=== PATIENT | female | born 2000 | race Caucasian/White ===

== ENCOUNTER 2019-12-01 00:53 | Outpatient (CLI) | payer MEDICAID ==
[2019-12-01 01:18] LABS: APPEARANCE,URINE CLEAR; BILIRUBIN,URINE NEGATIVE (NEGATIVE); COLOR,URINE STRAW; GLUCOSE, URINE NEGATIVE (NEGATIVE); KETONES,URINE NEGATIVE (NEGATIVE); LEUKOCYTE ESTERASE,URINE NEGATIVE (NEGATIVE); NITRITE,URINE NEGATIVE (NEGATIVE); PROTEIN,URINE NEGATIVE (NEGATIVE); URINE SPECIFIC GRAVITY 1.005; UROBILINOGEN,URINE NEGATIVE mg/dL (<2.0)
[2019-12-01 01:37] LABS: URINE AMPHETAMINES SCREEN NEGATIVE; URINE BARBITURATES SCREEN NEGATIVE; URINE BENZODIAZEPINES SCREEN NEGATIVE; URINE COCAINE SCREEN NEGATIVE; URINE MARIJUANA (THC) SCREEN NEGATIVE; URINE METHADONE SCREEN NEGATIVE; URINE PHENCYCLIDINE SCREEN NEGATIVE
[2019-12-01] MEDS ORDERED: HYDROXYZINE PAMOATE 50 MG CAPSULE ONE (03:24)
[2019-12-01] MEDS ORDERED: HYDROXYZINE PAMOATE 50 MG CAPSULE PO ONE (03:25)
== END 2019-12-01 03:32 | disposition home or self-care (01) ==
LOC: LC 00:53
PROVIDERS: ATTEND Obstetrics & Gynecology
DX: O47.1 False labor at or after 37 completed weeks of gestation (principal); Z3A.39 39 weeks gestation of pregnancy
CPT/HCPCS: 81005; 80307; 59025; J3490

== ENCOUNTER 2019-12-04 13:06 | Inpatient (IN) | payer MEDICAID ==
--- NOTE | 2019-12-04 13:13 | Non Stress Test Report ---
Non Stress Test Datetime Report Generated by CPN: 12/04/2019 13:12 DEMOGRAPHIC Test Number: 1 EGA NST: 39.2 INDICATION Indication for Study (NST) Other: lc URINE RESULTS Urine Protein, NST: Negative Urine Ketones - NST: Negative Urine Glucose - NST: Negative Urine Blood - NST: Negative MONITORING Monitor Explained: Monitor Explained; Test Explained; Patient Verbalized Understanding Time on Monitor: 12/01/2019 01:12 Time off Monitor: 12/01/2019 01:52 NST Duration: 40 NST INTERVENTIONS NST Interventions: None Physician Notified NST: Dr. Wilner BABY A: [id number] BABY A Movement : Present Contraction Frequency : 2-8 FHR Baseline : 125 Accelerations : 15X15 Decelerations : None Variability : Moderate 6-25bpm NST Review: Meets Criteria for Reactive NST NST Review and Verified By : Nicholas De Jesus RN NST Results: Reactive NST REPORT Report Trigger: Send Report
[2019-12-04 14:09] LABS: APPEARANCE,URINE SLIGHTLY-CLOUDY; BILIRUBIN,URINE NEGATIVE (NEGATIVE); COLOR,URINE YELLOW; GLUCOSE, URINE NEGATIVE (NEGATIVE); KETONES,URINE NEGATIVE (NEGATIVE); LEUKOCYTE ESTERASE,URINE NEGATIVE (NEGATIVE); NITRITE,URINE NEGATIVE (NEGATIVE); PROTEIN,URINE NEGATIVE (NEGATIVE); URINE SPECIFIC GRAVITY 1.008; UROBILINOGEN,URINE NEGATIVE mg/dL (<2.0)
[2019-12-04 14:39] LABS: URINE AMPHETAMINES SCREEN NEGATIVE; URINE BARBITURATES SCREEN NEGATIVE; URINE BENZODIAZEPINES SCREEN NEGATIVE; URINE COCAINE SCREEN NEGATIVE; URINE MARIJUANA (THC) SCREEN NEGATIVE; URINE METHADONE SCREEN NEGATIVE; URINE PHENCYCLIDINE SCREEN NEGATIVE
--- NOTE | 2019-12-04 15:25 | Admission Physical ---
Datetime Report Generated by CPN: 12/04/2019 15:25 CURRENT ADMISSION Hx Assessment: The History has been Reviewed and is Current Chief Complaint: Uterine Contractions; Suspected Ruptured Membranes Indication for Induction: Not Applicable Admit Impression : Term, Intrauterine Admit Plan: Admit to Unit; Initiate Labor Protocol ALLERGIES Medication Allergies: No Medication Allergies: No Known Allergies (12/01/2019) Latex: Unknown Food Allergies: denies Environmental Allergies: denies OBSTETRICAL HISTORY EDC: 12/06/2019 00:00 : 1 Para: 0 Term: 0 : 0 SAB: 0 IAB: 0 Ectopic: 0 Livin Cesareans: 0 VBACs: 0 Multiple Births: 0 Gestational Diabetes: No Rh Sensitization: No Incompetent Cervix: No CITLALLI: No Infertility: No ART Treatment: No Uterine Anomaly: No IUGR: No Hx Previous C/S: No Macrosomia: No Hx Loss/Stillborn: No PIH: No Hx : No Placenta Previa/Abruption: No Depression/PP Depression: No PTL/PROM: No Post Hemorrhage: No Current Procedures: Ultrasound; NST Obstetrical History Comments: g1-current SEE RECORDS Alcohol: No Marijuana : No Cocaine: No Other Illicit Drugs: No Cigarettes: Never Smoker. [id number] MEDICAL HISTORY Diabetes: No Blood Transfusion: No Pulmonary Disease (Asthma, TB): No Breast Disease: No Hypertension: No Pc Installation Engineer Surgery: No Heart Disease: No Hosp/Surgery: No Autoimmune Disorder: No Anesthetic Complications: No Kidney Disease: No Abnormal Pap Smear: No Neuro/Epilepsy: No Psychiatric Disorders: No Other Medical Diseases: Yes Hepatitis/Liver Disease: No Significant Family History: No Varicosities/Phlebitis: No Trauma/Violence : No Thyroid Dysfunction: No Medical History Comments: anemia, adopted by aunt INFECTIOUS HISTORY Gonorrhea: No Genital Herpes: No Chlamydia: No Tuberculosis: No Syphilis: No Hepatitis: No HIV/AIDS Exposure: No Rash or Viral Illness: No HPV: No PHYSICAL EXAM General: Normal Heart: Normal Lungs: Normal Extremities: Normal Vital Signs: Reviewed; Within Normal Limits VAGINAL EXAM Contraction Comments: 3-5 MEMBRANES Amniotic Fluid Color: Clear FETUS A EGA: 39.5 Monitoring: External US FHR Category: Category I Presentation: Vertex Admit Comment: 20yo @ 39w5d into L_D with SROM @ noon today, Pt is A neg, Rubella non-immune, GBS negative with complicated by excessive weight gain (>40lbs), elevated 1hr GTT (normal 3hr) and anemia at NOB, otherwise uncomplicated. Plan is expectant management at this time as pt is simone on her own, augment as neeed. Dr. Cortez is the OB energy control officer and aware of admission and pt status. PLANS FOR LABOR AND DELIVERY Labor and Delivery: None Pain Management: Epidural Feeding Preference: Both Benefit of Breast Feed Discussed: Yes Circumcision: Yes INFORMED CONSENT Assignment: Joanne Cortez MD Signature: with User ID: Christos : with User ID: [email or web address]
[2019-12-04] MEDS ORDERED: RINGERS SOLUTION,LACTATED 1,000 ML IV ONE (15:45)
[2019-12-04] MEDS ORDERED: RINGERS SOLUTION,LACTATED 1,000 ML IV PRN (15:45)
[2019-12-04] MEDS ORDERED: OXYTOCIN/0.9 % SODIUM CHLORIDE 30 UNIT/500 ML RTUINJ IV PRN ×2 (15:45→22:43)
[2019-12-04] MEDS ORDERED: MISOPROSTOL 0.2 MG TABLET ONE (15:46)
[2019-12-04] MEDS ORDERED: OXYTOCIN/0.9 % SODIUM CHLORIDE 30 UNIT/500 ML RTUINJ ONE (15:46)
[2019-12-04] MEDS ORDERED: LIDOCAINE 1% INJ-PF (10 MG/ML) 30 ML SDV ONE (15:46)
[2019-12-04] MEDS ORDERED: OXYTOCIN 10 UNIT/ML VIAL ONE (15:46)
[2019-12-04 16:26] LABS: ABSOLUTE BASOPHILS # (AUTO) 0.1 10^3/uL (0.0-0.2); ABSOLUTE EOSINOPHILS # (AUTO) 0.1 10^3/uL (0.0-0.6); ABSOLUTE LYMPHOCYTES (AUTO) 1.1 10^3/uL (0.5-4.7); ABSOLUTE MONOCYTES (AUTO) 0.5 10^3/uL (0.1-1.4); ABSOLUTE NEUT (AUTO) 6.9 10^3/uL (1.7-8.2); BASOPHILS % (AUTO) 0.6 % (0-2); EOSINOPHILS % (AUTO) 0.9 % (0-6); HEMATOCRIT 32.3 % (36.0-47.0); HEMOGLOBIN 11.2 g/dL (12.0-15.5); LYMPHOCYTES % (AUTO) 12.8 % (13-45); MEAN CORPUSCULAR HGB CONC 34.8 g/dL (32.0-36.0); MEAN CORPUSCULAR VOLUME 86 fl (80-97); MONOCYTES % (AUTO) 5.3 % (3-13); PLATELET COUNT 200 10^3/uL (150-450); RED BLOOD COUNT 3.74 10^6/uL (3.72-5.28); RED CELL DISTRIBUTION WIDTH 14.2 % (11.5-14.0); SEGMENTED NEUTROPHILS % (AUTO) 80.4 % (42-78); TOTAL CELLS COUNTED % (AUTO) 100 %; WHITE BLOOD COUNT 8.5 10^3/uL (4.0-10.5)
[2019-12-04] MEDS ORDERED: FENTANYL/BUPIVACAINE/NS/PF 300 MCG/150 ML RTUINJ EPI ONE (19:26)
[2019-12-04] MEDS ORDERED: EPHEDRINE SULFATE INJ 50 MG/1 ML AMPULE ONE (19:26)
[2019-12-04] MEDS ORDERED: ROPIVACAINE HCL 0.2% INJ/PF (2 MG/ML) 20 ML SDV ONE (19:27)
[2019-12-04] MEDS ORDERED: BENZOCAINE/MENTHOL AEROSOL SPRAY 56 ML TOP PRN (22:43)
[2019-12-04] MEDS ORDERED: PROMETHAZINE HCL 25 MG SUPP.RECT PR PRN (22:43)
[2019-12-04] MEDS ORDERED: ACETAMINOPHEN 650 MG SUPP.RECT PR PRN (22:43)
[2019-12-04] MEDS ORDERED: DIBUCAINE 1% OINTMENT 28 GM TP PRN (22:43)
[2019-12-04] MEDS ORDERED: PROMETHAZINE HCL 25 MG TABLET PO PRN (22:43)
[2019-12-04] MEDS ORDERED: NA PHOS,M-B/NA PHOS,DI-BA (ADULT) 133 ML ENEMA PR PRN (22:43)
[2019-12-04] MEDS ORDERED: PSEUDOEPHEDRINE HCL 30 MG TABLET PO PRN (22:43)
[2019-12-04] MEDS ORDERED: GLYCERIN/WITCH HAZEL LEAF 1 EACH MED..WIPE TP PRN (22:43)
[2019-12-04] MEDS ORDERED: DIPHENHYDRAMINE HCL 25 MG CAPSULE PO PRN (22:43)
[2019-12-04] MEDS ORDERED: MEASLES,MUMPS&RUBELLA VACC/PF 0.5 ML VIAL SUBCUT PRN (22:43)
[2019-12-04] MEDS ORDERED: ACETAMINOPHEN WITH CODEINE #3 TABLET PO PRN ×2 (22:43)
[2019-12-04] MEDS ORDERED: MAGNESIUM HYDROXIDE SUSP 30 ML UDCUP PO PRN (22:43)
[2019-12-04] MEDS ORDERED: ACETAMINOPHEN 325 MG TABLET PO PRN (22:43)
[2019-12-04] MEDS ORDERED: DIPH/PERTUSS(ACELL)/TETANUS VAC/PF 0.5 ML SYR (>=10YO) IM PRN (22:43)
[2019-12-04] MEDS ORDERED: PROMETHAZINE HCL INJ 25 MG/1 ML VIAL IV PRN (22:43)
[2019-12-04] MEDS ORDERED: ZOLPIDEM TARTRATE 5 MG TABLET PO PRN (22:43)
[2019-12-04] MEDS ORDERED: ACETAMINOPHEN 325 MG TABLET ONE (23:38)
--- NOTE | 2019-12-05 00:10 | Birth Certificate Data ---
Cert Data Datetime Report Generated by CPN: 12/05/2019 00:10 CERTIFICATE DATA 47a. Care: Yes (12/01/2019 01:04:Leatha Gan RN) 47b. Date of First Visit: 05/24/2019 00:00 (12/01/2019 01:04:Dione Morgan RN) 47c. Date of Last Visit: 11/27/2019 00:00 (12/01/2019 01:04:Dione Morgan RN) 47d. Number of Visits: 10 (12/01/2019 01:04:Dione Morgan RN) 48a. Number of Prev Live Births: 0 (12/01/2019 01:04:Dione Morgan RN) 48b. Now Livin (12/01/2019 01:04:Leatha Gan RN) 48c. Live Births Now : 0 (12/01/2019 01:04: system process) 48e. Losses: 0 (12/01/2019 01:04:Dione Morgan RN) RISK FACTORS IN THIS 49a. Diabetes: No (12/01/2019 01:04:Leatha Gan RN) 49b. Hypertension: No (12/01/2019 01:04:Leatha Gan RN) 49c. Previous Births: 0 (12/01/2019 01:04:Leatha Gan RN) 49d. Stillborns: No (12/01/2019 01:04:Leatha Gan RN) 49d. IUGR: No (12/01/2019 01:04:Leatha Gan RN) 49e. Infertility Treatment: No (12/01/2019 01:04:Leatha Gan RN) 49f. Previous Cesareans: 0 (12/01/2019 01:04:Dione Morgan RN) Mother's Height 50b. Height Inches: 65 (12/01/2019 01:07:QS system process) Mother's Weight 51a. Pre- Weight (lbs): 121 (12/01/2019 01:04:Leatha Gan RN) 51b. Weight at Delivery (lbs): 172 (12/01/2019 01:07:QS system process) 52. Dt Last Normal Menses Began: 03/01/2019 00:00 (12/01/2019 01:04:May MELODY Morgan) Infections Present/Treated 53a. Gonorrhea: No (12/01/2019 01:04:Leatha Gan RN) Results this Hospital Visit : Negative (12/01/2019 01:04:Leatha Gan RN) 53b. Syphilis: No (12/01/2019 01:04:Leatha Gan RN) 53c. Chlamydia: No (12/01/2019 01:04:Leatha Gan RN) Results this Hospital Visit: Negative (12/01/2019 01:04:Leatha Gan RN) 53d. Hepatitis B: No (12/01/2019 01:04:Leatha Gan RN) Results this Hospital Visit: Negative (12/01/2019 01:04:Leatha Gan RN) 53e. Hepatitis C: Negative (12/01/2019 01:04:Leatha Gan RN) 53h. Mother Tested for HBsAG: Yes (12/01/2019 01:04:Nahomy Vinson RN) 53i. Date Tested: 05/24/2019 00:00 (12/01/2019 01:04:Nahomy Vinson RN) 53j. Test Result: Negative (12/01/2019 01:04:Leatha Gan RN) Obstetric Procedures 54a, b, c. Obstetric Procedures: Ultrasound; NST (12/01/2019 01:04:Leatha Gan RN) Cigarette Smoking Cigarette Smoking: Never Smoker. [id number] (12/01/2019 01:04:Leatha Gan RN) 55a. 3 Months Before Preg - Ci (12/01/2019 01:04:Leatha Gan RN) 55b. 1st Trimester of Preg- Ci (12/01/2019 01:04:Leatha Gan RN) 55c. 2nd Trimester of Preg- Ci (12/01/2019 01:04:Leatha Gan RN) 55d. 3rd Trimester of Preg- Ci (12/01/2019 01:04:Leatha Gan RN) Onset of Labor 56a. PROM >12 Hrs: 10.40 (12/04/2019 13:28:QS system process) 56b. Precipitous Labor <3 Hrs: 10 (12/01/2019 01:04:QS system process) 56c. Prolonged Labor > 20 Hrs: 10 (12/01/2019 01:04:QS system process) 57a. Induction of Labor: Augmentation (12/01/2019 01:04:Nahomy Vinson RN) 57c. Non-Vertex Presentation A: Vertex (12/01/2019 01:04:Heather Watkins RN) 57d. Steroids - Lung Mat: None (12/01/2019 01:04:Nahomy Vinson RN) 57d. Steroids - Lung Mat: Not Applicable (12/01/2019 01:04:Nahomy Vinson RN) 57f. Mat [place] or Temp >100.4: 98.2 (12/01/2019 01:04:Nahomy Vinson RN) 57g. Moderate/Heavy Meconium: Clear (12/04/2019 13:28:Dione Morgan RN) 57h. Intolerance of Labor: N/A (12/01/2019 01:04:Heather Watkins RN) 57i. Epidural/Spinal Anesthesia: Intrathecal (12/01/2019 01:04:Joanne Cortez MD) Method of Delivery 58a. Forceps - Unsuccessful A: N/A (12/01/2019 01:04:Heather Watkins RN) 58b. Vacuum - Unsuccessful A: N/A (12/01/2019 01:04:Heather Watkins RN) 58c. Presentation at 58c. Presentation at - A : Vertex (12/01/2019 01:04:Heather Watkins RN) 58c. Presentation at - A : N/A (12/01/2019 01:04:Heather Watkins RN) 58c. Presentation at - A : Cephalic (12/01/2019 01:04:Heather Watkins RN) Final Route and Method of Del 58d. Baby A Route/Delivery: Vaginal (12/01/2019 01:04:Heather Watkins RN) 58e. Trial of Labor Attempted: No (12/01/2019 01:04:Nahomy Vinson RN) 58e. Trial of Labor Attempted A: N/A (12/01/2019 01:04:Nahomy Vinson RN) 58e. Trial of Labor Attempted B: N/A (12/01/2019 01:04:Nahomy Vinson RN) Maternal Morbidity 59b. 3rd or 4th Degree Lacs: Perineal (12/01/2019 01:04:Heather Watkins RN) 59b. 3rd or 4th Degree Lacs: Second Degree (12/01/2019 01:04:aNhomy Vinson RN) 59b. 3rd or 4th Degree Lacs: Lt labial 1st degree (12/01/2019 01:04:Heather Watkins RN) Birthweight Baby A: 3540 (12/01/2019 01:04:Nahomy Vinson RN) 60a. Pounds : 7 (12/01/2019 01:04:QS system process) 60b. Ounces: 13 (12/01/2019 01:04:QS system process) 61. GA at Delivery Baby A: 39.5 (12/01/2019 01:04:Heather Watkins RN) : Full Term- 39- 40.6 Weeks (12/01/2019 01:04:QS system process) 62a. 5 Minute Baby A: 9 (12/01/2019 01:04:QS system process)
--- NOTE | 2019-12-05 00:10 | Warning Signs in Babies ---
VOD Warning Signs Datetime Report Generated by [facility]: 12/05/2019 00:10 VOD#608 -Warning Signs in Babies: Needs to be viewed. (12/01/2019 01:04:Nahomy Vinson RN)
--- NOTE | 2019-12-05 00:10 | Delivery Summary ---
Del Sum A-C Datetime Report Generated by CPN: 12/05/2019 00:10 DELIVERY PERSONNEL DELIVERY PERSONNEL: [id number] Delivery Doctor:: Joanne Cortez MD Labor and Delivery Nurse:: Nahomy Vinson RN Labor and Delivery Nurse:: Heather Watkins RN Home Visit Field Care Manager/CHEMIST BIOLOGICAL: Abilio Sauceda, METALLURGICAL ENGINEERING TEACHER MATERNAL INFORMATION Delivery Anesthesia: Epidural Medications After Delivery: Pitocin 30 Units in 500ml NS/D5W Delivery QBL: 150 Maternal Complications: None Provider Comments: Called to patients room as she was complete and +2, pushing for approximately 40 minutes. She delivered a male with nuchal cord x1 loose, easily reduced. The shoulders and rest of the body followed easily. Infant was vigorously crying and cord clamping delayed for 30 seconds. After cord doubly clamped and cut, infant placed skin to skin. Both Mother and infant stable LABOR SUMMARY EDC: 12/06/2019 00:00 No. Babies in Womb: 1 Attempted: No Labor Anesthesia: Intrathecal LABOR INFORMATION Reason for Induction: Not Applicable Onset of Labor: 12/04/2019 12:00 Complete Dilatation: 12/04/2019 21:35 Oxytocin: Augmentation Group B Beta Strep: negative Antibiotics # of Doses: 0 Name of Antibiotic Given: n/a Steroids Given: None Reason Steroids Not Administered: Not Applicable MEMBRANES Membranes Rupture Method: Spontaneous Rupture of Membranes: 12/04/2019 12:00 Length of Rupture (hr): 10.40 Amniotic Fluid Color: Clear Amniotic Fluid Amount: Small Amniotic Fluid Odor: Normal STAGES OF LABOR Stage 1 hr: 9 Stage 1 min: 35 Stage 2 hr: 0 Stage 2 min: 49 Stage 3 hr: 0 Stage 3 min: 4 Total Time in Labor hr: 10 Total Time in Labor min: 28 VAGINAL DELIVERY Episiotomy: None Laceration #1: Perineal Laceration Extension #1: Second Degree Other Laceration: Lt labial 1st degree Laceration Repair: Yes Laceration Repair Note: Repaired with 2-0 chromic in a layered closure Sponge Count Correct: Yes Sharps Count Correct: Yes CSECTION DELIVERY Primary Indication: N/A CSection Incision: N/A BABY A INFORMATION Delivery Date/Time: 12/04/2019 22:24 Method of Delivery: Vaginal Nurse Controlled Delivery: No Born in Route : No : N/A Forceps: N/A Vacuum Extraction: N/A Shoulder Dystocia : No PRESENTATION/POSITION BABY A Presentation: Cephalic Cephalic Presentation: Vertex Vertex Position: Left Occipital Anterior Breech Presentation: N/A PLACENTA INFORMATION BABY A Placenta Delivery Time : 12/04/2019 22:28 Placenta Method of Delivery: Spontaneous Placenta Status: Delivered SCORES BABY A Heart Rate 1 min: >100 bpm Resp Effort 1 min: Good Cry Reflex Irritability 1 min: Cough or Sneeze or Pulls Away Muscle Tone 1 min: Active Motion Color 1 min: Body [place], Extremities Blue Resuscitation Effort 1 min: Tactile Stimulation SCORE 1 MIN: 9 Heart Rate 5 min: >100 bpm Resp Effort 5 min: Good Cry Reflex Irritability 5 min: Cough or Sneeze or Pulls Away Muscle Tone 5 min: Active Motion Color 5 min: Body [place], Extremities Blue SCORE 5 MIN: 9 INFANT INFORMATION BABY A Gestational Age at Delivery: 39.5 Gestational Status: Full Term- 39- 40.6 Weeks Infant Outcome : Liveborn Infant Condition : Stable Infant Sex: Male IDENTIFICATION BABY A Infant Verification Date/Time: 12/04/2019 22:37 ID Band Number: [id number] Mother's Name Verified: Yes Infant RN Verifying : Zach Watkins, RN/ Job Zheng, RN WEIGHT/LENGTH BABY A Infant Birthweight (gm): 3540 Infant Weight (lb): 7 Weight (oz): 13 Length (in): 20.50 Infant Length (cm): 52.07 CORD INFORMATION BABY A No. Cord Vessels: 1 Nuchal Cord : Around Neck x1, Loose Cord Blood Taken: Yes-For Eval (Mom's Blood Type - or O+) Suction: None ASSESSMENT BABY A Infant Complications: None Physical Findings at Delivery: Molding of the Head Infant Respirations: Appears Normal Skin to Skin: Yes Shipbuilding Draftsperson/ALS Called : No Infant Care By: Zach Watkins, RN Transferred To: Remains with Mother BABY B INFORMATION : N/A ASSESSMENT BABY B Skin to Skin: Yes SIGNATURES Signature: with User ID: David : with User ID: David
[2019-12-05] MEDS ORDERED: BENZOCAINE/MENTHOL AEROSOL SPRAY 56 ML ONE (00:30)
[2019-12-05] MEDS: FAMOTIDINE 20 MG TABLET PO SCH ×3 (00:50→22:11)
[2019-12-05] MEDS: IBUPROFEN 800 MG TABLET PO SCH ×4 (00:50→22:09)
[2019-12-05 07:20] LABS: HEMOGLOBIN 9.9 g/dL (12.0-15.5); MEAN CORPUSCULAR HEMOGLOBIN 29.7 pg (27.0-33.4); MEAN CORPUSCULAR HGB CONC 34.1 g/dL (32.0-36.0); MEAN CORPUSCULAR VOLUME 87 fl (80-97); PLATELET COUNT 158 10^3/uL (150-450); RED BLOOD COUNT 3.32 10^6/uL (3.72-5.28); RED CELL DISTRIBUTION WIDTH 14.7 % (11.5-14.0); WHITE BLOOD COUNT 9.8 10^3/uL (4.0-10.5)
[2019-12-05] MEDS: SENNOSIDES/DOCUSATE 8.6-50 MG 1 EACH TABLET PO SCH (10:33)
[2019-12-05] MEDS: PRENATAL VITAMIN W DHA CAPSULE PO SCH (10:33)
[2019-12-05] MEDS: FERROUS SULFATE 325 MG TABLET PO SCH ×2 (10:33→18:35)
[2019-12-05] MEDS: DOCUSATE SODIUM 100 MG CAPSULE PO SCH ×2 (10:33→18:35)
--- NOTE | 2019-12-05 16:37 | PDOC PROGRESS REPORT ---
Subjective-OB Progress Note for:: 12/05/19 Subjective: reports bleeding slowing, pain controlled with current meds. denies needs Physical Exam (OB) Vital Signs: Temp Pulse Resp BP Pulse Ox 98.3 F 73 17 105/58 L 100 12/05/19 07:49 12/05/19 07:49 12/05/19 07:49 12/05/19 07:49 12/05/19 07:49 Intake & Output 12/04/19 12/05/19 12/06/19 06:59 06:59 06:59 Intake Total 320 Balance 320 Weight 80.286 kg - Maternal Morbidity 59. Maternal Morbidity (serious complications experinced by the mother associated with labor and delivery: None of the above - Abdomen Description: Soft Hernia Present: No Fundal Description: Firm, Midline Fundal Height: u/u - u/2 - Abdominal Distension: No distension Tenderness: Nontender - Extremities Lower extremities: Corina's sign - neg Calf: Normal, Nontender Objective-Diagnostic Laboratory: 12/05/19 06:45 12/04/19 12/05/19 12/05/19 16:14 06:45 06:45 WBC 9.8 RBC 3.32 L Hgb 9.9 L Hct 29.0 L MCV 87 MCH 29.7 MCHC 34.1 RDW 14.7 H Plt Count 158 Blood Type A NEGATIVE A NEGATIVE Antibody Screen NEGATIVE Assessment and Plan(PN) - Time Spent with Patient Time with patient: Less than 15 minutes - Disposition Anticipated Discharge Disposition: Home, Self Care Anticipated Discharge Timeframe: within 24 hours
[2019-12-06] MEDS: IBUPROFEN 800 MG TABLET PO SCH ×2 (05:40→13:31)
[2019-12-06] MEDS: SENNOSIDES/DOCUSATE 8.6-50 MG 1 EACH TABLET PO SCH (09:13)
[2019-12-06] MEDS: FERROUS SULFATE 325 MG TABLET PO SCH (09:13)
[2019-12-06] MEDS: FAMOTIDINE 20 MG TABLET PO SCH (09:13)
[2019-12-06] MEDS: DOCUSATE SODIUM 100 MG CAPSULE PO SCH (09:14)
[2019-12-06] MEDS: PRENATAL VITAMIN W DHA CAPSULE PO SCH (09:14)
--- NOTE | 2019-12-06 10:19 | PDOC DISCHARGE SUMMARY ---
Impression - Admit/DC Date/PCP Admission Date/Primary Care Provider: 12/04/19 13:26 Discharge Date: 12/06/19 - PP Day #2, doing well, UOB, voiding, A neg/ baby is O+, states she has rec'd Rhogam PP. Rubella Non-immune, breast and bottle feeding - Discharge Diagnosis (2) Rh negative status during Is this a current diagnosis for this admission?: Yes (3) Rubella nonimmune status, delivered, current hospitalization Is this a current diagnosis for this admission?: Yes (4) Spontaneous rupture of membranes Is this a current diagnosis for this admission?: Yes - Additional Information Resuscitation Status: Full Code Discharge Diet: As Tolerated, Regular Discharge Activity: Activity As Tolerated, No Lifting Over 10 Pounds, Pelvic Rest Prescriptions: Ferrous Sulfate [Feosol 325 mg Tablet] 325 mg PO DAILY #30 tablet Ibuprofen [Motrin 800 mg Tablet] 800 mg PO Q8 #60 tablet Home Medications: Pnv No.95/Ferrous Fum/Folic AC [ Vitamins Tablet] 1 tab PO DAILY 11/30 Ferrous Sulfate [Feosol 325 mg Tablet] 325 mg PO DAILY #30 tablet 12/06/19 Ibuprofen [Motrin 800 mg Tablet] 800 mg PO Q8 #60 tablet 12/06/19 HPI Reason(s) for Admission: Onset of Labor Procedures: Ultrasound Intrapartum Procedure(s): Spontaneous Vaginal Delivery Complication(s): Laceration-Perineal Laceration-Degree: 2nd Hospital Course 59. Maternal Morbidity (serious complications experinced by the mother associated with labor and delivery: None of the above Results Laboratory Results: WBC 9.8 10^3/uL (4.0-10.5) 12/05/19 06:45 RBC 3.32 10^6/uL (3.72-5.28) L 12/05/19 06:45 Hgb 9.9 g/dL (12.0-15.5) L 12/05/19 06:45 Hct 29.0 % (36.0-47.0) L 12/05/19 06:45 MCV 87 fl (80-97) 12/05/19 06:45 MCH 29.7 pg (27.0-33.4) 12/05/19 06:45 MCHC 34.1 g/dL (32.0-36.0) 12/05/19 06:45 RDW 14.7 % (11.5-14.0) H 12/05/19 06:45 Plt Count 158 10^3/uL (150-450) 12/05/19 06:45 Lymph % (Auto) 12.8 % (13-45) L 12/04/19 16:14 Humphreys % (Auto) 5.3 % (3-13) 12/04/19 16:14 Eos % (Auto) 0.9 % (0-6) 12/04/19 16:14 Baso % (Auto) 0.6 % (0-2) 12/04/19 16:14 Absolute Neuts (auto) 6.9 10^3/uL (1.7-8.2) 12/04/19 16:14 Absolute Lymphs (auto) 1.1 10^3/uL (0.5-4.7) 12/04/19 16:14 Absolute Monos (auto) 0.5 10^3/uL (0.1-1.4) 12/04/19 16:14 Absolute Eos (auto) 0.1 10^3/uL (0.0-0.6) 12/04/19 16:14 Absolute Basos (auto) 0.1 10^3/uL (0.0-0.2) 12/04/19 16:14 Seg Neutrophils % 80.4 % (42-78) H 12/04/19 16:14 Urine Color YELLOW 12/04/19 13:15 Urine Appearance SLIGHTLY-CLOUDY 12/04/19 13:15 Urine pH 7.0 (5.0-9.0) 12/04/19 13:15 Ur Specific [place] 1.008 12/04/19 13:15 Urine Protein NEGATIVE mg/dL (NEGATIVE) 12/04/19 13:15 Urine Glucose (UA) NEGATIVE mg/dL (NEGATIVE) 12/04/19 13:15 Urine Ketones NEGATIVE mg/dL (NEGATIVE) 12/04/19 13:15 Urine Blood SMALL (NEGATIVE) H 12/04/19 13:15 Urine Nitrite NEGATIVE (NEGATIVE) 12/04/19 13:15 Urine Bilirubin NEGATIVE (NEGATIVE) 12/04/19 13:15 Urine Urobilinogen NEGATIVE mg/dL (<2.0) 12/04/19 13:15 Ur Leukocyte Esterase NEGATIVE (NEGATIVE) 12/04/19 13:15 Urine Ascorbic Acid NEGATIVE (NEGATIVE) 12/04/19 13:15 Membranes Rupture POSITIVE (NEGATIVE) H 12/04/19 13:44 Urine Opiates Screen NEGATIVE 12/04/19 13:15 Urine Methadone Screen NEGATIVE 12/04/19 13:15 Ur Barbiturates Screen NEGATIVE 12/04/19 13:15 Ur Phencyclidine Scrn NEGATIVE 12/04/19 13:15 Ur Amphetamines Screen NEGATIVE 12/04/19 13:15 U Benzodiazepines Scrn NEGATIVE 12/04/19 13:15 Urine Cocaine Screen NEGATIVE 12/04/19 13:15 U Marijuana (THC) Screen NEGATIVE 12/04/19 13:15 RPR NONREACTIVE (NONREACTIVE) 12/04/19 16:14 Blood Type A NEGATIVE 12/05/19 06:45 Antibody Screen NEGATIVE 12/04/19 16:14 Screen NEGATIVE 12/05/19 06:45 Plan Health Concerns: iron rich foods Plan of Treatment: d/c home, f/up with [facility] in 4 wks Time Spent: Less than 30 Minutes
[2019-12-06 12:41] VITALS: BP 102/43
== END 2019-12-06 13:35 | disposition home or self-care (01) | DRG 807 ==
LOC: LC 13:06 → LR 13:26 → 2S 12-05 00:42
PROVIDERS: ADMIT Obstetrics & Gynecology; ATTEND Obstetrics & Gynecology
PROC: 10E0XZZ Delivery of Products of Conception, External Approach (ICD-10-PCS; principal; 2019-12-04)
PROC: 0KQM0ZZ Repair Perineum Muscle, Open Approach (ICD-10-PCS; 2019-12-04)
PROC: 3E0234Z Introduction of Serum, Toxoid and Vaccine into Muscle, Percutaneous Approach (ICD-10-PCS; 2019-12-05)
DX: O70.1 Second degree perineal laceration during delivery (principal); Z37.0 Single live birth; O69.81X0 Labor and delivery complicated by cord around neck, without compression, not applicable or unspecified; O26.893 Other specified pregnancy related conditions, third trimester; Z67.11 Type A blood, Rh negative; O26.03 Excessive weight gain in pregnancy, third trimester; O99.02 Anemia complicating childbirth; D64.9 Anemia, unspecified; Z3A.39 39 weeks gestation of pregnancy
CPT/HCPCS: 1967; 36415; 80307; 81005; 84112; 85025; 85027; 85461; 86592; 86850; 86900; 86901; 94760; J2590; J2790; J2795; J3010; J3490